=== PATIENT | female | born 1995 | race Caucasian/White ===

== ENCOUNTER 2025-01-29 02:17 | Outpatient (CLI) | payer BC, SELFPAY ==
[2025-01-29 16:37] LABS: Panorama Kit Sent via Fed Ex
[2025-01-29 16:44] LABS: Abs Immature Grans 0.03 10^3/uL (0.0-0.06); Absolute Basophil Count 0.05 10^3/uL (0.0-0.2); Absolute Eosinophil Count 0.13 10^3/uL (0.0-0.7); Absolute Monocyte Count 0.59 10^3/uL (0.1-0.8); Absolute Neutrophil Count 5.55 10^3/uL (1.2-6.7); Basophils % 0.6 %; Eosinophils % 1.5 %; HCT 32.6 % (36.0-46.0); HGB 11.1 g/dL (11.2-15.7); Immature Grans % 0.3 %; Lymphocytes % 26.6 %; MCV 88 fL (80-95); MPV 8.4 fL (8.0-11.0); Monocytes % 6.8 %; Neutrophils % 64.2 %; Platelet Count 301 10^3/uL (130-400); RDW 12.8 % (11.7-14.6); RDW-SD 41.2 fL; WBC 8.65 10^3/uL (4.4-10.8)
[2025-01-31 09:34] LABS: Varicella IgG Antibody Negative (See Note)
[2025-01-31 09:38] LABS: Rubella IgG Ab (UVM) Positive (See Note)
[2025-01-31 09:44] LABS: Hepatitis B Surface Ag Negative (Negative)
[2025-01-31 10:37] LABS: Hepatitis C Ab w Rflx HCV PCR Negative (Negative)
[2025-01-31 11:28] LABS: HIV-1/2 Ag & Ab Screen Negative (Negative)
[2025-02-01 22:01] LABS: Syphilis IgG w/Reflex Nonreactive (Nonreactive)
[2025-02-05 15:44] LABS: Specimen WB Whole Blood
[2025-02-15 01:33] LABS: Result Summary NEGATIVE; Specimen WB Whole Blood
== END 2025-01-29 02:18 | disposition home or self-care (01) ==
LOC: LBO 02:17
PROVIDERS: Visit Provider Advanced Practice Midwife
DX: Z34.91 Encounter for supervision of normal pregnancy, unspecified, first trimester (principal)
CPT/HCPCS: 36415; 81220; 81222; 81329; 86787; 86803; 86850; 86900; 86901; 87340; 87389; 85025; 86762; 86780

== ENCOUNTER 2025-01-29 15:56 | Outpatient (REF) | payer BC, SELFPAY ==
[2025-01-29 17:15] LABS: *AMPHETAMINES SCREEN URINE Negative (Negative); *BARBITURATES SCREEN URINE Negative (Negative); *BENZODIAZEPINES SCREEN URINE Negative (Negative); Cannabinoids THC Negative (Negative); Cocaine Screen,Urine Negative (Negative); METHADONE URINE SCREEN Negative (Negative); OPIATES URINE SCREEN Negative (Negative)
[2025-01-29 17:22] LABS: Tricyclic Antidepressants Negative (Negative)
[2025-01-31 12:11] LABS: Fentanyl Scr w/Rfx Confirm Negative ng/mL (<1)
[2025-02-07 11:21] LABS: Buprenorphine Negative ng/mL (Cutoff: 5.0); Norbuprenorphine Negative ng/mL (Cutoff: 2.5)
== END 2025-01-29 15:57 | disposition home or self-care (01) ==
LOC: LBN 15:56
PROVIDERS: Visit Provider Advanced Practice Midwife
DX: Z34.91 Encounter for supervision of normal pregnancy, unspecified, first trimester (principal)
CPT/HCPCS: 80307; 80348; 87086

== ENCOUNTER 2025-02-15 17:50 | Outpatient (REF) | payer BC, SELFPAY ==
[2025-02-18 12:09] LABS: Chlamydia Result Negative (Negative); GC Result Negative (Negative)
== END 2025-02-15 17:51 | disposition home or self-care (01) ==
LOC: LBN 17:50
PROVIDERS: Visit Provider Advanced Practice Midwife
DX: Z34.92 Encounter for supervision of normal pregnancy, unspecified, second trimester (principal)
CPT/HCPCS: 87491; 87591

== ENCOUNTER 2025-05-07 03:44 | Outpatient (CLI) | payer BC, SELFPAY ==
[2025-05-07 14:31] LABS: HCT 33.0 % (36.0-46.0); HGB 11.3 g/dL (11.2-15.7); MCH 30.6 pg (27.0-33.0); MCHC 34.2 % (32.0-36.0); MCV 89 fL (80-95); MPV 9.0 fL (8.0-11.0); Platelet Count 245 10^3/uL (130-400); RBC 3.69 10^6/uL (3.93-5.22); RDW 13.1 % (11.7-14.6); RDW-SD 43.1 fL; WBC 9.60 10^3/uL (4.4-10.8)
[2025-05-07 14:37] LABS: Glucose,1 Hr (Glucola) 98 mg/dL (80-140)
== END 2025-05-07 03:45 | disposition home or self-care (01) ==
LOC: LBO 03:44
PROVIDERS: Visit Provider Advanced Practice Midwife
DX: Z34.92 Encounter for supervision of normal pregnancy, unspecified, second trimester (principal)
CPT/HCPCS: 36415; 82950; 85027; 86850; 90384

== ENCOUNTER 2025-05-07 15:41 | Outpatient (REF) | payer BC, SELFPAY ==
[2025-05-07 17:27] LABS: Cannabinoids THC Negative (Negative); METHADONE URINE SCREEN Negative (Negative)
[2025-05-09 11:26] LABS: Fentanyl Scr w/Rfx Confirm Negative ng/mL (<1)
== END 2025-05-07 15:42 | disposition home or self-care (01) ==
LOC: LBN 15:41
PROVIDERS: Visit Provider Advanced Practice Midwife
DX: Z34.93 Encounter for supervision of normal pregnancy, unspecified, third trimester (principal)
CPT/HCPCS: 80307; 80348

== ENCOUNTER 2025-06-19 01:20 | Outpatient (CLI) | payer BC, SELFPAY ==
--- NOTE | 2025-06-19 12:35 | DI.US_ITS ---
Exam(s) US OB SIVAN WEIGHT EXAM: US OB SIVAN WEIGHT CLINICAL HISTORY: S>D,UTERINE SIZE DISCREPANCY,[id number]. TECHNIQUE: Transabdominal obstetrical ultrasound performed. COMPARISON: US US OB 2-3 TRIMESTER from 03/13/2025 FINDINGS: Number of fetuses: 1 position: Cephalic. Placental location: There is a grade 3 posterior placenta. The placental tip is 3.5 cm from the internal os. No evidence of previa. Cervical length: The cervical length is 4.1 cm. BIOMETRIC DATA: BPD: 9.12cm, 37weeks HC: 31.75cm, 35weeks 5days AC: 30.79cm, 34weeks 5days FL: 6.77cm, 34weeks 6days EFW: 2,587.95g, 5lb 11.89oz, 56.8% Composite Age: 35weeks 4days NITISH: 07/20/2025 Heart Rate: heart rate was not recorded during the examination. Amniotic fluid index: 17.02cm. The largest pocket measures 6.6 cm. IMPRESSION: 1. Single live intrauterine gestation as above. 2. Estimated weight is 2588gms. This is the 57 percent percentile. 3. Amniotic fluid index is 17.0 cm. The largest pocket measures 6.6 cm. DATA REPOSITORY:
== END 2025-06-19 01:40 ==
PROVIDERS: Visit Provider Advanced Practice Midwife
DX: O26.843 Uterine size-date discrepancy, third trimester (principal); Z3A.37 37 weeks gestation of pregnancy
CPT/HCPCS: 76816

== ENCOUNTER 2025-07-05 15:14 | Outpatient (REF) | payer BC, SELFPAY | END 2025-07-05 15:15 | disposition home or self-care (01) | LOC: LBN 15:14 | PROVIDERS: Visit Provider Advanced Practice Midwife | DX: Z34.93 Encounter for supervision of normal pregnancy, unspecified, third trimester (principal) | CPT/HCPCS: 87081 ==

== ENCOUNTER 2025-07-12 17:15 | Outpatient (REF) | payer BC, SELFPAY ==
[2025-07-12 18:13] LABS: PROTEIN < 6.0 mg/dL
== END 2025-07-12 17:16 | disposition home or self-care (01) ==
LOC: LBN 17:15
PROVIDERS: Visit Provider Advanced Practice Midwife
DX: Z34.93 Encounter for supervision of normal pregnancy, unspecified, third trimester (principal)
CPT/HCPCS: 82565; 84156

== ENCOUNTER 2025-07-15 07:54 | Outpatient (CLI) | payer BC, SELFPAY ==
[2025-07-15 15:43] VITALS: BP 132/84; PULSE 73; TEMP 36.7
[2025-07-15 15:46] VITALS: BP 132/84; PULSE 73; TEMP 36.7
--- NOTE | 2025-07-15 16:30 | W.OBNST ---
Date of service: 07/15/25 Time of Service: 16:30 NST Evaluation Reason for NST Reasons for Nonstress Test: GESTATIONAL HYPERTENSION Gestational Age Gestational Age in Weeks and Days: 38 Weeks and 3Days Test and Monitor Explained Test/Monitor Explained: Test Explained and Monitor Explained Vital Signs Blood Pressure: 132/84 Pulse: 73 Temperature: 98.1 F NST Information Date on Monitor: 07/15/25 Time on Monitor: 15:33 Date off Monitor: 07/15/25 Time off Monitor: 16:06 Total Time on Monitor: 33 NST Interventions: PO Hydration NST Evaluation Patient States Movement: Present FHR Baseline: 130 Variability: Moderate 6-25 bpm Accelerations: 15x15 Decelerations: None NST Results: Reactive Note Ultrasound Done: N/A. NST Note Note: NST due to BP 130s/80s in office. Reactive NST. Will continue to see Fabricio twice weekly. NST Reviewed and Verified by: Jo-Ann Hernández
[2025-07-15 16:33] VITALS: BP 132/84; PULSE 73; TEMP 36.7
== END 2025-07-15 16:06 ==
LOC: BCD 07:54 → OBS 15:39
PROVIDERS: Visit Provider Advanced Practice Midwife
DX: O13.3 Gestational [pregnancy-induced] hypertension without significant proteinuria, third trimester (principal); Z3A.38 38 weeks gestation of pregnancy
CPT/HCPCS: 59025

== ENCOUNTER 2025-07-25 20:27 | Inpatient (IN) | payer BC, SELFPAY ==
[2025-07-25 21:34] VITALS: TEMP 36.8
[2025-07-25 21:39] VITALS: BP 134/81; PULSE 93; RESP 16; TEMP 37
[2025-07-25 21:49] LABS: Abs Immature Grans 0.13 10^3/uL (0.0-0.06); HCT 31.4 % (36.0-46.0); HGB 10.8 g/dL (11.2-15.7); Immature Grans % 1.0 %; MCH 30.8 pg (27.0-33.0); MCHC 34.4 % (32.0-36.0); MCV 90 fL (80-95); MPV 9.4 fL (8.0-11.0); Platelet Count 222 10^3/uL (130-400); RBC 3.51 10^6/uL (3.93-5.22); RDW 13.9 % (11.7-14.6); RDW-SD 45.1 fL; WBC 13.34 10^3/uL (4.4-10.8)
[2025-07-25 21:50] VITALS: BP 134/81; PULSE 93
[2025-07-25 22:07] LABS: ALT 18 U/L (14-59); AST 17 U/L (15-37); Albumin 2.9 g/dL (3.4-5.0); Alkaline Phosphatase 160 U/L (46-116); Anion Gap 11.6 mmol/L (3-11); BUN 9 mg/dL (7-18); Bilirubin, Total 0.2 mg/dL (0.2-1.0); CO2 22.4 mmol/L (21.0-32.0); Calcium 8.9 mg/dL (8.5-10.1); Chloride 103 mmol/L (98-107); Estimated GFR 123.76 (mL/min/1.73m2); Glucose 95 mg/dL (74-106); Potassium 3.8 mmol/L (3.5-5.1); Sodium 137 mmol/L (136-145); Total Protein 7.1 g/dL (6.4-8.2)
--- NOTE | 2025-07-25 22:28 | W.PM.OBHPL1 ---
Date of service: 07/25/25 Time of Service: 22:28 Assessment and Plan Assessment and plan (1) Spontaneous onset of labor: Status: Acute Assessment and plan: Admit to Center and routine admission labs. Comfort measures. Anticipate . OB-HPI Labor/Delivery History of Present Illness Reason for Visit: labor Chief Complaint: Uterine Contractions; Suspected Rupture of Membranes , Associated Signs and Symptoms of Suspected ROM: ruptured membranes. NITISH Calculator Estimated Delivery Date Method Current WG Current Estimate 07/26/25 Ultrasound #1 39w 6d Other Estimates 07/29/25 LMP (Uncertain) 39w 3d 07/30/25 Ultrasound #2 39w 2d Comments: Fabricio called and reported ruptured membranes and regular contractions. She presented with regular contractions and leaking clear fluid which was nitrazine pos. History of Present Expected Delivery Route/Plan - CNM FOB/partner - Ryan Schulz (first child) BB yes to circ Wants a low to no intervention labor and GBS negative Specific Issues/Plan 1.5 P's +, patients parents both alcoholics and mother with NIEVES, strong boundaries with them and limited contact 1a. UDS -neg, 28wk UDS-neg 2. RH neg - Discussed with Nimisha Regalado at 28 weeks- 05/07 3. SMA & CF negative, cfDNA low risk male, AFP declined 4. Hgb 11.0- iron every other day recommended 5. Varicella non-immune, Discussed with Fabricio, offer vaccine 6. At 20 wks anatomy scan is nml, placental edge 2.7 cm from os, EFW 90th percentile 7. leg and foot cramps - magnesium recommended 8. Anxiety - uses relaxation techniques. PFSH All Active Problems (Updated 07/25/25 @ 22:35 by Jo-Ann Hernández CNM) Spontaneous onset of labor (Acute) Susceptible to varicella (non-immune), currently (Acute) Rh negative state in antepartum period (Acute) (Acute) Medical History (Updated 07/25/25 @ 22:35 by Jo-Ann Hernández CNM) Anxiety Family history of hypertension in father Family History (Updated 01/29/25 @ 15:02 by Marii Bejarano CNM) Father Family history of hypertension in father Hypertension Substance use disorder Alcohol use disorder Aunt Hyperlipidemia Maternal Grandmother Hyperlipidemia Diabetes Mother Bipolar disorder Substance use disorder Alcohol use disorder Paternal Grandmother Heart disease Uncle Cancer Social History (Updated 01/29/25 @ 15:09 by Marii Bejarano CNM) Smoking/Tobacco Use Status: Former Tobacco Use Second Hand Exposure: No Smoking risk assessment performed?: Yes Alcohol Intake: current Drug use: Never Substance use type: does not use Household members: significant other Housing: house 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 Pets and animals: Yes (3 dogs and chickens) Pets and animals: cat(s), dog(s) and farm animals Sexually active: Yes Do you think of yourself as: straight/heterosexual Current gender identity: female What is your relationship status?: living with partner Panel score (0-1 are the most socially isolated patients): 1 What type of physical activity do you participate in: walking, regular exercise, other Details: pilates and yoga Duration: 30-45 minutes/day Frequency: 3-4 times per week Seatbelt use: always Helmet use: Yes Do you feel safe at home: Yes Do you feel safe in your relationship?: Yes Female Reproductive History Menstrual Age of Menarche: 12 Duration of menses: 3-5 days History History 1 Para 0 Hx # Term Pregnancies 0 Multiple births 0 Hx # Pregnancies 0 Ectopic pregnancies 0 AB induced 0 Hx Number of Living Children 0 AB spontaneous 0 Meds Allergies and Home Medications Allergies Allergy/AdvReac Type Severity Reaction Status Date / Time pollen extracts Allergy Unknown Unknown Verified 07/19/25 13:45 Penicillins AdvReac Unknown Other (See Verified 07/19/25 13:45 Comment) Home Medications ?Medication ?Instructions ?Recorded ?Confirmed ?Type ascorbic acid 125 mg-collagen, cap PO 01/29/25 07/19/25 History hydrolyzed 740 mg capsule (Collagen Plus Vitamin C) calcium 650 mg-vitamin D3 12.5 tab PO 01/29/25 07/19/25 History mcg-vitamin K 40 mcg chewable tablet (Viactiv) omega-3 360 kj-jmt-crd-fish oil 1 cap PO DAILY 01/29/25 07/19/25 History 1,200 mg capsule,delayed release (Fish Oil) Bacillus coagulans 250 million 250 mmu cells PO ONCE 02/15/25 07/19/25 History cell chewable tablet ferrous sulfate 325 mg (65 mg 325 mg PO DAILY 02/15/25 07/19/25 History iron) tablet,delayed release vitamins no.165-iron 13 tab PO 02/15/25 07/19/25 History mg-folic acid 1 mg chewable tablet Exam Physical Exam Vital signs: Temp Pulse Resp BP 98.6 F 93 H 16 134/81 07/25/25 21:39 07/25/25 21:50 07/25/25 21:39 07/25/25 21:50 Vital Signs Reviewed: Yes Constitutional Constitutional: no acute distress Detailed Labor and Delivery Exam Dilation: 3 Effacement (%): 100 station: 0 Cervix position: mid Consistency: soft Pinto Score: Cervical Points Exam 0 1 2 3 Dilation Closed 1-2cm 3-4 cm 5-6cm Effacement 0-30% 40-50% 60-70% 80% Consistency Firm Medium Soft Station -3 -2 -1,0 +1,+2 Position Posterior Mid Anterior Amniotic Membrane Status: Ruptured Amniotic Fluid: Clear Pooling: Positive Nitrazine: Positive Monitor Mode: External Contraction Frequency(min): every 2-3 Contraction Duration(sec): 50-60 Contraction Intensity: Moderate/Strong Fetus A Heart Rate Baseline: 130 Monitor Accelerations: 15 X 15 Monitor Decelerations: None Variability: Moderate (6-25 BPM) Categories: Category I Date of Membrane Rupture: 07/25/25 Time of Membrane Rupture: 20:00 HEENT Exam HEENT Exam: Normal Respiratory Exam Respiratory Exam: Normal Cardiovascular Exam Cardiovascular Exam: Normal Abdominal Exam Abdominal Exam: Normal Exam Exam: Normal Extremities Exam Extremities Exam: Normal Skin Exam Skin Exam: Normal Psychiatric Exam Psychiatric Exam: Normal Results Abnormal Lab Findings: Abnormal Labs 07/25/25 21:40 WBC 13.34 H RBC 3.51 L Hgb 10.8 L Hct 31.4 L Absolute Neutrophils 9.68 H Absolute Monocytes 1.03 H Anion Gap 11.6 H Alkaline Phosphatase 160 H Albumin 2.9 L Risk Assessment Risk for Shoulder Dystocia Historical/Initial OB: NEGATIVE FOR: Pelvic Abnormality, Pre- BMI>30, Previous Shoulder Dystocia or Previous Macrosomia 36 Weeks: NEGATIVE FOR: Current Gestational DM, EFW>4500gms or Maternal Weight Gain>40lbs 40 Weeks: NEGATIVE FOR: EFW> 4500 gms, Maternal Weight Gain >40lb or Post Dates Increased Risk?: No Risk for Pre-Eclampsia Yes, if one or more: NEGATIVE FOR: Hx Pre-E/Gest HTN, Chronic HTN, Multiple Gestation, Pre-gestational DM, Renal Disease, Systemic Lupus or APA Syndrome Yes, if 2 or more: POSITIVE FOR: Nulliparity; NEGATIVE FOR: Age>= 35 yrs, >10yr btwn pregnancies, BMI>30, ethinicty, Mother/Sister w/ Pre-E or Previous IUGR Risk for Post- Hemorrhage Initial: NEGATIVE FOR: Multiple Gestation, Previous PPH, Known Clotting Deficiency, Grand Multiparity or Anticoagulation 36 Weeks: NEGATIVE FOR: Anemia, hgb<10, Low platelets(thrombocytopenia), Gestational HTN or Pre-E, Polyhydraminios or EFW>4500gms 40 Weeks: NEGATIVE FOR: Anemia, hgb<10, Low platelets (thrombocytopenia), Gestation HTN or Pre-E, Polyhydraminios or EFW>4500gms At Risk?: No Risks Reviewed Risks Reviewed Upon Admission: Yes
[2025-07-25 22:45] VITALS: TEMP 36.8
[2025-07-25 23:50] VITALS: RESP 18; TEMP 36.6
[2025-07-25 23:53] VITALS: BP 131/86; PULSE 81
[2025-07-26] VITALS (19 sets, daily range): BP systolic 126–137; BP diastolic 71–87; PULSE 88–108; RESP 16–18; TEMP 36.3–37.1
--- NOTE | 2025-07-26 05:41 | W.PM.OBNL1 ---
Date of service: 07/26/25 Time of Service: 05:41 Pelvic Exam Comments: exam deferred Contractions Contraction Frequency(min): every 3-4 Contraction Duration(sec): 60 Intensity: Moderate Fetus A Monitor: Doppler Heart Rate Baseline: 135 Decelerations: None Assessment and Plan Assessment and plan (1) Spontaneous onset of labor: Status: Acute Assessment and plan: Will provide comfort measures and anticipate . Labor augmentation if indicated. Objective Abnormal lab results 07/25/25 Range/Units 21:40 WBC 13.34 H (4.4-10.8) 10^3/uL RBC 3.51 L (3.93-5.22) 10^6/uL Hgb 10.8 L (11.2-15.7) g/dL Hct 31.4 L (36.0-46.0) % Absolute Neutrophils 9.68 H (1.2-6.7) 10^3/uL Absolute Monocytes 1.03 H (0.1-0.8) 10^3/uL Anion Gap 11.6 H (3-11) mmol/L Alkaline Phosphatase 160 H (46-116) U/L Albumin 2.9 L (3.4-5.0) g/dL Temp Pulse Resp BP 98.5 F 105 H 16 137/82 07/26/25 03:55 07/26/25 03:55 07/26/25 02:50 07/26/25 03:55 Laboratory Results WBC 13.34 10^3/uL (4.4-10.8) H 07/25/25 21:40 RBC 3.51 10^6/uL (3.93-5.22) L 07/25/25 21:40 Hgb 10.8 g/dL (11.2-15.7) L 07/25/25 21:40 Hct 31.4 % (36.0-46.0) L 07/25/25 21:40 MCV 90 fL (80-95) 07/25/25 21:40 MCH 30.8 pg (27.0-33.0) 07/25/25 21:40 MCHC 34.4 % (32.0-36.0) 07/25/25 21:40 RDW 13.9 % (11.7-14.6) 07/25/25 21:40 Plt Count 222 10^3/uL (130-400) 07/25/25 21:40 MPV 9.4 fL (8.0-11.0) 07/25/25 21:40 Immature Gran % 1.0 % 07/25/25 21:40 Neutrophils % 72.6 % 07/25/25 21:40 Lymphocytes % 17.3 % 07/25/25 21:40 Monocytes % 7.7 % 07/25/25 21:40 Eosinophils % 1.0 % 07/25/25 21:40 Basophils % 0.4 % 07/25/25 21:40 Nucleated RBC % 0.0 % (0.0-0.3) 07/25/25 21:40 Absolute Neutrophils 9.68 10^3/uL (1.2-6.7) H 07/25/25 21:40 Absolute Lymphocytes 2.31 10^3/uL (1.2-3.4) 07/25/25 21:40 Absolute Monocytes 1.03 10^3/uL (0.1-0.8) H 07/25/25 21:40 Absolute Eosinophils 0.13 10^3/uL (0.0-0.7) 07/25/25 21:40 Absolute Basophils 0.05 10^3/uL (0.0-0.2) 07/25/25 21:40 Sodium 137 mmol/L (136-145) 07/25/25 21:40 Potassium 3.8 mmol/L (3.5-5.1) 07/25/25 21:40 Chloride 103 mmol/L (98-107) 07/25/25 21:40 Carbon Dioxide 22.4 mmol/L (21.0-32.0) 07/25/25 21:40 Anion Gap 11.6 mmol/L (3-11) H 07/25/25 21:40 BUN 9 mg/dL (7-18) 07/25/25 21:40 Creatinine 0.6 mg/dL (0.55-1.02) 07/25/25 21:40 Est GFR (CKD-EPI 2020) 123.76 (mL/min/1.73m2) 07/25/25 21:40 Glucose 95 mg/dL (74-106) 07/25/25 21:40 Calcium 8.9 mg/dL (8.5-10.1) 07/25/25 21:40 Total Bilirubin 0.2 mg/dL (0.2-1.0) 07/25/25 21:40 AST 17 U/L (15-37) 07/25/25 21:40 ALT 18 U/L (14-59) 07/25/25 21:40 Alkaline Phosphatase 160 U/L (46-116) H 07/25/25 21:40 Total Protein 7.1 g/dL (6.4-8.2) 07/25/25 21:40 Albumin 2.9 g/dL (3.4-5.0) L 07/25/25 21:40 Membranes Rupture Positive 07/25/25 22:15 ABO/Rh O Negative 07/25/25 21:40 Antibody Screen POSITIVE 07/25/25 21:40 Antibody Identification Anti-D 07/25/25 21:40 Vital Signs Reviewed: Yes Notable Details: preeclampsia labs WNL. Subjective Patient Reports: No new Complaints Interval history since last seen: Fabricio has been using the ball and ambulating for comfort. She was able to rest briefly and is coping well with contractions Results Hemoglobin/Hematocrit: Hgb 10.8 g/dL (11.2-15.7) L 07/25/25 21:40 Hct 31.4 % (36.0-46.0) L 07/25/25 21:40 Abnormal Lab Findings: Abnormal Labs 07/25/25 21:40 WBC 13.34 H RBC 3.51 L Hgb 10.8 L Hct 31.4 L Absolute Neutrophils 9.68 H Absolute Monocytes 1.03 H Anion Gap 11.6 H Alkaline Phosphatase 160 H Albumin 2.9 L
--- NOTE | 2025-07-26 13:00 | W.PM.OBNL1 ---
Date of service: 07/26/25 Time of Service: 13:00 Informed Consent Informed Consent: Augmentation of Labor (pr declines augmentation and declines antibiotics at this time) and Risk,Benefits,Alternatives Discussed Pelvic Exam Dilation: 7 Effacement (%): 100 station: 0 Cervix Position: mid Consistency: soft Contractions Monitor Mode: External Contraction Frequency(min): irregular, q4-8 Intensity: Mild/Moderate Fetus A Monitor: External (US) Heart Rate Baseline: 130 Variability: Moderate (6-25 BPM) Categories: Category I Accelerations: Present Decelerations: None Amniotic Membrane Status: Ruptured Rupture Method: Spontaneous Amniotic Fluid: Clear Date of Membrane Rupture: 08/15/25 Time of Membrane Rupture: 20:00 Assessment and Plan Assessment and plan (1) PROM (premature rupture of membranes): Status: Acute Assessment and plan: A: 30 yo G1 @ 40 wks, PROM last night @ 2000 Onset of contractions during the night, 6cm @ 0700 today now advanced to 7cm @ 1300 Inadequate contraction pattern, recommendation made for pitocin augmentation Began discussion of prophylactic PCN due to PROM >18 hrs, is GBS neg P: Will obtain EFM tracing to verify category 1 and return to intermittent auscultation Revisit options in care plan with pt and progress evaluation by 1700 Repeat CBC at 1999 Dr. Rosario aware of pt status Objective Abnormal lab results 07/25/25 Range/Units 21:40 WBC 13.34 H (4.4-10.8) 10^3/uL RBC 3.51 L (3.93-5.22) 10^6/uL Hgb 10.8 L (11.2-15.7) g/dL Hct 31.4 L (36.0-46.0) % Absolute Neutrophils 9.68 H (1.2-6.7) 10^3/uL Absolute Monocytes 1.03 H (0.1-0.8) 10^3/uL Anion Gap 11.6 H (3-11) mmol/L Alkaline Phosphatase 160 H (46-116) U/L Albumin 2.9 L (3.4-5.0) g/dL Temp Pulse Resp BP 98.4 F 89 16 136/83 07/26/25 12:03 07/26/25 13:50 07/26/25 02:50 07/26/25 13:50 Laboratory Results WBC 13.34 10^3/uL (4.4-10.8) H 07/25/25 21:40 RBC 3.51 10^6/uL (3.93-5.22) L 07/25/25 21:40 Hgb 10.8 g/dL (11.2-15.7) L 07/25/25 21:40 Hct 31.4 % (36.0-46.0) L 07/25/25 21:40 MCV 90 fL (80-95) 07/25/25 21:40 MCH 30.8 pg (27.0-33.0) 07/25/25 21:40 MCHC 34.4 % (32.0-36.0) 07/25/25 21:40 RDW 13.9 % (11.7-14.6) 07/25/25 21:40 Plt Count 222 10^3/uL (130-400) 07/25/25 21:40 MPV 9.4 fL (8.0-11.0) 07/25/25 21:40 Immature Gran % 1.0 % 07/25/25 21:40 Neutrophils % 72.6 % 07/25/25 21:40 Lymphocytes % 17.3 % 07/25/25: Monocytes % 7.7 % 07/25/25: Eosinophils % 1.0 % 07/25/25: Basophils % 0.4 % 07/25/25: Nucleated RBC % 0.0 % (0.0-0.3) 07/25/25 21:40 Absolute Neutrophils 9.68 10^3/uL (1.2-6.7) H 07/25/25 21:40 Absolute Lymphocytes 2.31 10^3/uL (1.2-3.4) 07/25/25 21:40 Absolute Monocytes 1.03 10^3/uL (0.1-0.8) H 07/25/25: Absolute Eosinophils 0.13 10^3/uL (0.0-0.7) 07/25/25 21:40 Absolute Basophils 0.05 10^3/uL (0.0-0.2) 07/25/25 21:40 Sodium 137 mmol/L (136-145) 07/25/25 21:40 Potassium 3.8 mmol/L (3.5-5.1) 07/25/25 21:40 Chloride 103 mmol/L (98-107) 07/25/25 21:40 Carbon Dioxide 22.4 mmol/L (21.0-32.0) 07/25/25 21:40 Anion Gap 11.6 mmol/L (3-11) H 07/25/25 21:40 BUN 9 mg/dL (7-18) 07/25/25 21:40 Creatinine 0.6 mg/dL (0.55-1.02) 07/25/25 21:40 Est GFR (CKD-EPI 2020) 123.76 (mL/min/1.73m2) 07/25/25 21:40 Glucose 95 mg/dL (74-106) 07/25/25 21:40 Calcium 8.9 mg/dL (8.5-10.1) 07/25/25 21:40 Total Bilirubin 0.2 mg/dL (0.2-1.0) 07/25/25 21:40 AST 17 U/L (15-37) 07/25/25 21:40 ALT 18 U/L (14-59) 07/25/25 21:40 Alkaline Phosphatase 160 U/L (46-116) H 07/25/25 21:40 Total Protein 7.1 g/dL (6.4-8.2) 07/25/25 21:40 Albumin 2.9 g/dL (3.4-5.0) L 07/25/25 21:40 Membranes Rupture Positive 07/25/25 22:15 ABO/Rh O Negative 07/25/25 21:40 Antibody Screen POSITIVE 07/25/25 21:40 Antibody Identification Anti-D 07/25/25 21:40 Vital Signs Reviewed: Yes Objective Narrative Objective Narrative: Pt coping well with contractions which are mild/moderate and irregular/infrequent Afebrile, normotensive, tolerating oral intake well PROM x18 hrs, discuss pitocin augmentation and antibiotic prophylaxis with pt Pt and FOB are declining interventions at this time, preferring rest and positions changes for the afternoon We discussed risk of chorioamnionitis in prolonged ROM and that her labor progress is very slow We also discussed risk of maternal fatigue as labor extends into a second night of no sleep Subjective Interval history since last seen: Contractions are a bit less frequent, some are very strong especially when changing positions. No nausea or vomiting, oral intake and voiding qs. Pt appears calm and conversational, using physioball and p-nut ball, or standing at bedside
[2025-07-26 17:48] LABS: Abs Immature Grans 0.12 10^3/uL (0.0-0.06); HCT 31.4 % (36.0-46.0); HGB 10.7 g/dL (11.2-15.7); Immature Grans % 0.9 %; MCH 30.4 pg (27.0-33.0); MCHC 34.1 % (32.0-36.0); MCV 89 fL (80-95); MPV 9.3 fL (8.0-11.0); Platelet Count 217 10^3/uL (130-400); RBC 3.52 10^6/uL (3.93-5.22); RDW 14.1 % (11.7-14.6); RDW-SD 45.5 fL; WBC 13.86 10^3/uL (4.4-10.8)
--- NOTE | 2025-07-26 20:26 | W.PM.OBNL1 ---
Date of service: 07/26/25 Time of Service: 20:27 Informed Consent Informed Consent: Augmentation of Labor (pr declines augmentation and declines antibiotics at this time) and Risk,Benefits,Alternatives Discussed Pelvic Exam Dilation: 7.5 Effacement (%): 100 station: +1 Position: LOP Consistency: soft Contractions Monitor Mode: Palpation Contraction Frequency(min): irregular Intensity: Moderate Fetus A Monitor: Doppler Heart Rate Baseline: 140 Categories: Category I FHR Rhythm: Regular Characteristics: Normal Assessment and Plan Assessment and plan (1) PROM (premature rupture of membranes): Status: Acute Assessment and plan: A: Slow progression to 7-8cm, vtx 0/+1 over past 7 hours Pitocin augmentation is indicated, prophylactic antibiotics are recommended for PROM x24 hrs Pt in consultation with FOB continues to decline these therapies hoping she will progress without them Reviewed all risks including infection, continued slow to no progress, hemorrhage, distress Repeat WBC is stable at 13.86, pt remains afebrile and FHT baseline 130-140 P: Pt does consent to placing and securing IV access She desires recheck for progress in a few hours Will revisit recommendations with pt and FOB at that time Objective Vital Signs Reviewed: Yes Objective Narrative Objective Narrative: Labor remains irregular, pt moving about room, using different positions, coping well. Discussions regarding use of pitocin for augmentation and antibiotics to prevent infection after 24 hrs SROM have continued, many questions answered, recommendations made clear and pt declines either pitocin or PCN, has concerns about being allergic to PCN though she has never had PCN but others in her family have PCN allergy. We also have discussed increased risk for PPH due to very slow progress from inadequate contraction pattern possibly heralding uterine atony . Pt does agree to IV access placement. Subjective Interval history since last seen: Contractions have sometimes been stronger, other times less so, remain irregular and short. Results Abnormal Lab Findings: Abnormal Labs 07/25/25 07/26/25 21:40 17:40 WBC 13.34 H 13.86 H RBC 3.51 L 3.52 L Hgb 10.8 L 10.7 L Hct 31.4 L 31.4 L Absolute Neutrophils 9.68 H 10.37 H Absolute Monocytes 1.03 H 1.14 H Anion Gap 11.6 H Alkaline Phosphatase 160 H Albumin 2.9 L
--- NOTE | 2025-07-26 22:47 | W.PM.OBNL1 ---
Date of service: 07/26/25 Time of Service: 22:47 Informed Consent Informed Consent: Augmentation of Labor (pr declines augmentation and declines antibiotics at this time) and Risk,Benefits,Alternatives Discussed Pelvic Exam Comments: deferred Contractions Monitor Mode: External Contraction Frequency(min): q2-4 Intensity: Moderate/Strong Fetus A Monitor: External (US) Heart Rate Baseline: 130 Variability: Moderate (6-25 BPM) Categories: Category I Accelerations: Present Decelerations: None Amniotic Membrane Status: Ruptured Assessment and Plan Assessment and plan (1) PROM (premature rupture of membranes): Status: Acute Assessment and plan: A: Advanced dilation without progress for some hours Category 1 tracing, afebrile, normotensive Inadequate contraction pattern, pt declines IV pitocin augmentation Nipple stimulation is more acceptable to pt ROM x27 hrs, pt declines prophylactic ATB after extensive counseling P: Cont intermittent auscultation & pt initiated nipple stimulation IV access has been placed and secured Dr. Rosario notified of pt status Anticipate once labor pattern increases Objective Vital Signs Reviewed: Yes Subjective Interval history since last seen: Pt consents to 30 minute EFM tracing to confirm category 1 status. She reports recent increase in contraction strength and frequency while sitting on physioball and doing manual nipple stimulation, also reports back pain with contractions.
[2025-07-26] MEDS: Acetaminophen 325 MG TAB 650 MG PO (23:41)
[2025-07-27] VITALS (214 sets, daily range): BP systolic 113–148; BP diastolic 57–87; PULSE 0–196; RESP 16–18; TEMP 36.5–37.2; O2SAT 97; BMI 32.8
--- NOTE | 2025-07-27 02:58 | W.PM.OBNL1 ---
Date of service: 07/27/25 Time of Service: 02:59 Informed Consent Informed Consent: Augmentation of Labor (pt requesting augmentation of labor), Risk,Benefits,Alternatives Discussed and Other (declines ATB prophylaxis) Pelvic Exam Dilation: 8.5 (RN exam at 0030) Contractions Monitor Mode: External (NOVI) Contraction Frequency(min): q2-3 Intensity: Moderate/Strong Fetus A Monitor: External (US) (NOVI) Heart Rate Baseline: 125 Variability: Moderate (6-25 BPM) Categories: Category I Accelerations: Present Decelerations: None Amniotic Membrane Status: Ruptured Assessment and Plan Assessment and plan (1) Prolonged rupture of membranes: Status: Acute Assessment and plan: Pt declines antibiotic prophylaxis at 31 hrs ROM Remains afebrile, GBS neg @ 36 wks, FHT tracing category 1 (2) PROM (premature rupture of membranes): Status: Acute Assessment and plan: A: Pt requested SVE @ 0030, RN exam for 8-9 cm dilation Dysfunctional labor, inadequate contraction pattern Pt does not report urges to push or bear down, does report pelvic pressure She is requesting pitocin augmentation, NOVI monitor placed IV site remains secure, pt continues to decline recommended ATB prophylaxis P: Start pitocin augmentation, titrate per protocol, vaginal exam deferred at this time Increased risk for PPH identified, addressed once 2nd stage begins Anticipate Objective Vital Signs Reviewed: Yes Subjective Interval history since last seen: Pt has been moving around the room changing positions often, breathing heavily with contractions, coping well.
[2025-07-27] MEDS: Oxytocin/Normal Saline 30 UNIT/500 ML BAG 2 UNITS IV (03:22)
[2025-07-27] MEDS: Lactated Ringers 1,000 ML 125 ML IV ×2 (03:23→12:00)
[2025-07-27] MEDS: Normal Saline Flush 10 ML SYR IVP (03:24)
--- NOTE | 2025-07-27 05:37 | W.PM.OBNL1 ---
Date of service: 07/27/25 Time of Service: 05:37 Informed Consent Informed Consent: Augmentation of Labor (pt requesting augmentation of labor), Risk,Benefits,Alternatives Discussed and Other (declines ATB prophylaxis) Pelvic Exam Dilation: 9 Effacement (%): 100 station: +2 Comments: membranes palpated across vtx Contractions Monitor Mode: External (NOVI) Contraction Frequency(min): Q2-4 Contraction Duration(sec): 60 Intensity: Moderate/Strong Fetus A Monitor: External (US) (novi) Heart Rate Baseline: 130 Variability: Moderate (6-25 BPM) Categories: Category I Accelerations: Present Decelerations: Early Assessment and Plan Assessment and plan (1) Prolonged rupture of membranes: Status: Acute Assessment and plan: Afebrile, cat 1 tracing, continues to decline ATB (2) PROM (premature rupture of membranes): Status: Acute Assessment and plan: A: Slow progression to 9/+2; category 1 tracing Pitocin at 6u/min, pt advised to limit oral intake to clear liquids Continues to cope well with contractions, FOB bedside for support P: Continue plan of care (pitocin aug, EFM, activity ad rodolfo) Comfort measures as pt requests Continued attention to sx of infection and response to augmentation Reviewed with pt possible use of IUPC to better monitor contraction strength Objective Vital Signs Reviewed: Yes Subjective Interval history since last seen: Pt breathing through contractions and holding labor comb, considering nitrous but feels glad to be working with strong contractions, declines need for further pain management choices, declines ATB prophylaxis again. Reports feeling vaginal pressure and back pain with contractions.
--- NOTE | 2025-07-27 07:59 | PGE_ITS ---
Date of service: 07/27/25 Time of Service: 07:59 Informed Consent Informed Consent: Augmentation of Labor, Risk,Benefits,Alternatives Discussed and Other (declines ATB prophylaxis) Pelvic Exam Dilation: 10 (very thin anterior lip) Effacement (%): 100 station: +3 Comments: small forebag AROM'ed with pt consent, small amt clear fluid returned Contractions Monitor Mode: External (NOVI) Contraction Frequency(min): q2 Contraction Duration(sec): 70 Intensity: Strong Fetus A Monitor: External (US) (NOVI) Heart Rate Baseline: 125 Variability: Moderate (6-25 BPM) Categories: Category I Accelerations: Present Decelerations: Early Assessment and Plan Assessment and plan (1) Prolonged rupture of membranes: Status: Acute (2) PROM (premature rupture of membranes): Status: Acute Assessment and plan: A: 2nd stage huddle completed, category 1 tracing, pitocin @ 12 u/min small amt bloody show noted, vtx +2/+3, thin anterior lip Pt states she doesn't want to push on her back, requests something for pain Offered nitrous and explained other medications will likely dull her ability to push P: Try nitrous for pain management, 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 Rosario notified of pt status and requested inhouse for delivery Objective Vital Signs Reviewed: Yes Objective Narrative Objective Narrative: Pt vocalizing with contractions, prefers kneeling on bed Subjective Interval history since last seen: Reports lots of pelvic pressure including rectal pressure, no involuntary urge to push but requests pain medication. Offered nitrous as 2nd stage is beginning.
--- NOTE | 2025-07-27 10:32 | W.PM.OBNL1 ---
Date of service: 07/27/25 Time of Service: 10:32 Informed Consent Informed Consent: Augmentation of Labor, Regional Anesthesia, Risk,Benefits,Alternatives Discussed and Other (declines ATB prophylaxis) Pelvic Exam Dilation: 10 station: +3 Position: ROP Contractions Contraction Frequency(min): Q2-3 Fetus A Heart Rate Baseline: 130 Variability: Moderate (6-25 BPM) Categories: Category I Accelerations: Present Decelerations: Early Amniotic Membrane Status: Ruptured Assessment and Plan Assessment and plan (1) Prolonged rupture of membranes: Status: Acute (2) PROM (premature rupture of membranes): Status: Acute Assessment and plan: A: Has been pushing for 2 hrs, 3rd second stage huddle completed, maternal fatigue is increasing Anterior fontenelle palpable at 2 o'clock, head movement with maternal effort Category 1 tracing, afebrile, pitocin at 12 u/min P: Dr. Rosario in to speak with pt, recommending intrathecal anesthesia for a rest and to assist rotation Will have SYSTEMS ARCHITECT come to speak with pt and FOB regarding intrathecal process I anticipate if head rotates to [place]-OA Subjective Interval history since last seen: Feeling tired, also feeling discouraged and not sure pushing is working, understands head position is ROP and holding progress up. Agreeable to speaking with Dr. Rosario about options.
--- NOTE | 2025-07-27 10:36 | W.PM.OBNL1 ---
Date of service: 07/27/25 Time of Service: 10:36 Informed Consent Informed Consent: Augmentation of Labor, Risk,Benefits,Alternatives Discussed and Other (declines ATB prophylaxis) Fetus A Heart Rate Baseline: 130 Variability: Moderate (6-25 BPM) Categories: Category I Accelerations: 15 X 15 Decelerations: None Assessment and Plan Assessment and plan (1) Prolonged rupture of membranes: Status: Acute Assessment and plan: Pt is aware of the risk of infection with prolonged rupture of membranse. She continues to decline abx ppx. She also remains afebrile and heart tracing is Cat 1 with no e/o distress. (2) Prolonged labor: Status: Acute Assessment and plan: I had a discussion with the patient, her and the CNM. We reviewed her labor dystocia and potential outcomes. Right now maternal and status are reassuring but that can change quickly. We reviewed options for pain management at this point include Nitrous, which is only minimally helpful to her, or neuraxial anesthesia via intrathecal vs epidural. We discussed the possibility of CS and the increasing risks associated with longer pushing. She opts to talk with anesthesia about a possible intrathecal. Objective Abnormal lab results 07/26/25 Range/Units 17:40 WBC 13.86 H (4.4-10.8) 10^3/uL RBC 3.52 L (3.93-5.22) 10^6/uL Hgb 10.7 L (11.2-15.7) g/dL Hct 31.4 L (36.0-46.0) % Absolute Neutrophils 10.37 H (1.2-6.7) 10^3/uL Absolute Monocytes 1.14 H (0.1-0.8) 10^3/uL Temp Pulse Resp BP 97.7 F 103 H 18 133/82 07/27/25 09:24 07/27/25 10:34 07/27/25 05:17 07/27/25 08:12 Laboratory Results WBC 13.86 10^3/uL (4.4-10.8) H 07/26/25 17:40 RBC 3.52 10^6/uL (3.93-5.22) L 07/26/25 17:40 Hgb 10.7 g/dL (11.2-15.7) L 07/26/25 17:40 Hct 31.4 % (36.0-46.0) L 07/26/25 17:40 MCV 89 fL (80-95) 07/26/25 17:40 MCH 30.4 pg (27.0-33.0) 07/26/25 17:40 MCHC 34.1 % (32.0-36.0) 07/26/25 17:40 RDW 14.1 % (11.7-14.6) 07/26/25 17:40 Plt Count 217 10^3/uL (130-400) 07/26/25 17:40 MPV 9.3 fL (8.0-11.0) 07/26/25 17:40 Immature Gran % 0.9 % 07/26/25 17:40 Neutrophils % 74.8 % 07/26/25 17:40 Lymphocytes % 15.3 % 07/26/25 17:40 Monocytes % 8.2 % 07/26/25 17:40 Eosinophils % 0.4 % 07/26/25 17:40 Basophils % 0.4 % 07/26/25 17:40 Nucleated RBC % 0.0 % (0.0-0.3) 07/26/25 17:40 Absolute Neutrophils 10.37 10^3/uL (1.2-6.7) H 07/26/25 17:40 Absolute Lymphocytes 2.12 10^3/uL (1.2-3.4) 07/26/25 17:40 Absolute Monocytes 1.14 10^3/uL (0.1-0.8) H 07/26/25 17:40 Absolute Eosinophils 0.06 10^3/uL (0.0-0.7) 07/26/25 17:40 Absolute Basophils 0.06 10^3/uL (0.0-0.2) 07/26/25 17:40 Sodium 137 mmol/L (136-145) 07/25/25 21:40 Potassium 3.8 mmol/L (3.5-5.1) 07/25/25 21:40 Chloride 103 mmol/L (98-107) 07/25/25 21:40 Carbon Dioxide 22.4 mmol/L (21.0-32.0) 07/25/25 21:40 Anion Gap 11.6 mmol/L (3-11) H 07/25/25 21:40 BUN 9 mg/dL (7-18) 07/25/25 21:40 Creatinine 0.6 mg/dL (0.55-1.02) 07/25/25 21:40 Est GFR (CKD-EPI 2020) 123.76 (mL/min/1.73m2) 07/25/25 21:40 Glucose 95 mg/dL (74-106) 07/25/25 21:40 Calcium 8.9 mg/dL (8.5-10.1) 07/25/25 21:40 Total Bilirubin 0.2 mg/dL (0.2-1.0) 07/25/25 21:40 AST 17 U/L (15-37) 07/25/25 21:40 ALT 18 U/L (14-59) 07/25/25 21:40 Alkaline Phosphatase 160 U/L (46-116) H 07/25/25 21:40 Total Protein 7.1 g/dL (6.4-8.2) 07/25/25 21:40 Albumin 2.9 g/dL (3.4-5.0) L 07/25/25 21:40 Membranes Rupture Positive 07/25/25 22:15 ABO/Rh O Negative 07/25/25 21:40 Antibody Screen POSITIVE 07/25/25 21:40 Antibody Identification Anti-D 07/25/25 21:40 Vital Signs Reviewed: Yes Subjective Interval history since last seen: I was asked to speak with Fabricio and her in regards to her slow labor progress and persistent OP presentation. She underwent SROM at 20:00 on 07/25, was 3cm at 23:00 and progressed to 7cm around 13:00 on 07/26. She slowly progressed to 8-9cm/0 station by midnight and agreed to augmentation with pitocin at 3:30am. By 5am she was 9/+2. By 7:30 she had a thin AL and a small forebag was ruptured. She eventually started pushing around 8am and pushed for ~2hrs with ensuing discouragement, fatigue and lower pain tolerance. Results Hemoglobin/Hematocrit: Hgb 10.7 g/dL (11.2-15.7) L 07/26/25 17:40 Hct 31.4 % (36.0-46.0) L 07/26/25 17:40 Abnormal Lab Findings: Abnormal Labs 07/25/25 07/26/25 21:40 17:40 WBC 13.34 H 13.86 H RBC 3.51 L 3.52 L Hgb 10.8 L 10.7 L Hct 31.4 L 31.4 L Absolute Neutrophils 9.68 H 10.37 H Absolute Monocytes 1.03 H 1.14 H Anion Gap 11.6 H Alkaline Phosphatase 160 H Albumin 2.9 L
[2025-07-27] MEDS: Bupivacaine 0.25% Pres-Free 10 ML VIAL IT (12:04)
[2025-07-27] MEDS: fentaNYL 100 MCG/2 ML VIAL IT (12:04)
--- NOTE | 2025-07-27 12:31 | ANES.PREOP_ITS ---
General Info Date of Service Date Performed: 07/27/25 Height: 5 ft Weight: 76.204 kg Body Mass Index (BMI): 32.8 Meds Allergies and Home Medications Allergies Allergy/AdvReac Type Severity Reaction Status Date / Time pollen extracts Allergy Unknown Unknown Verified 07/19/25 13:45 Penicillins AdvReac Unknown Other (See Verified 07/19/25 13:45 Comment) Home Medication ?Medication ?Instructions ?Recorded ascorbic acid 125 mg-collagen, cap PO 01/29/25 hydrolyzed 740 mg capsule (Collagen Plus Vitamin C) calcium 650 mg-vitamin D3 12.5 tab PO 01/29/25 mcg-vitamin K 40 mcg chewable tablet (Viactiv) omega-3 360 ba-xuh-sbn-fish oil 1 cap PO DAILY 5 1,200 mg capsule,delayed release (Fish Oil) Bacillus coagulans 250 million 250 mmu cells PO ONCE 0 02/15/25 cell chewable tablet ferrous sulfate 325 mg (65 mg 325 mg PO DAILY 02/15/25 iron) tablet,delayed release vitamins no.165-iron 13 tab PO 02/15/25 mg-folic acid 1 mg chewable tablet Current Visit Medications: Current Medications Generic Name Dose Route Start Last Admin Trade Name Freq PRN Reason Stop Dose Admin Ringer's Solution 1,000 mls @ 125 mls/hr 07/27/25 03:00 07/27/25 12:00 IV 125 mls/hr INFUSION SHAHID Administration Oxytocin/Sodium Chloride 30 unit in 500 mls @ 2 mls/hr 07/27/25 03:00 07/27/25 12:22 Pitocin/Normal Saline IV 8 milliunits/min INFUSION SHAHID 8 mls/hr Protocol Titration 2 MILLIUNITS/MIN IV Miscellaneous Supplies 1 each 07/25/25 20:30 Iv Access IV DIRECTED SHAHID IV Miscellaneous Supplies 1 each 07/26/25 20:30 Iv Access IV DIRECTED SHAHID Sodium Chloride 0 ml 07/25/25 20:27 Normal Saline Flush 10 Ml Syr IVP PRN PRN Sodium Chloride 0 ml 07/26/25 08:30 07/27/25 07:39 Normal Saline Flush 10 Ml Syr IVP Not Given BID SHAHID Sodium Chloride 0 ml 07/25/25 20:27 Normal Saline 10 Ml Vial IJ DIRECTED PRN Sodium Chloride 0 ml 07/26/25 20:16 Normal Saline Flush 10 Ml Syr IVP PRN PRN Sodium Chloride 0 ml 07/27/25 08:30 Normal Saline Flush 10 Ml Syr IVP BID SHAHID Sodium Chloride 0 ml 07/26/25 20:16 Normal Saline 10 Ml Vial IJ DIRECTED PRN PFSH Active Problems Active Problems: Problem Status Onset Code Prolonged rupture of membranes Acute O42.90 PROM (premature rupture of membranes) Acute O42.90 Spontaneous onset of labor Acute Susceptible to varicella (non-immune), currently Acute O09.899, Z28.39 Rh negative state in antepartum period Acute O26.899, Z67.91 Acute Z34.90 Medical History Medical History (Updated 07/27/25 @ 03:03 by Rafia Guzman) Anxiety Family history of hypertension in father Tobacco Smoking/Tobacco Use Status: Former Tobacco Use Second hand exposure: No Alcohol Alcohol Intake: current Substance Use Substance use: Never Substance use type: does not use Prental History History 2 1 Para 0 Hx # Term Pregnancies 0 Multiple births 0 Hx # Pregnancies 0 Ectopic pregnancies 0 AB induced 0 Hx Number of Living Children 0 AB spontaneous 0 Vital Signs and Lab Results Vital Signs Most Recent Vital Signs in EMR: Most Recent Vital Signs Temp Pulse Resp BP 36.9 C 90 18 120/63 07/27/25 12:30 07/27/25 12:31 07/27/25 05:17 07/27/25 12:24 Lab Results 07/26/25 17:40 07/25/25 21:40 Blood Type / Crossmatch: 2 Antibody Screen POSITIVE 07/25/25 Complete Blood Count: 2 WBC, (4.4-10.8) 13.86 10^3/uL H 07/26/25, 17:40 RBC, (3.93-5.22) 3.52 10^6/uL L 07/26/25, 17:40 Hgb, (11.2-15.7) 10.7 g/dL L 07/26/25, 17:40 Hct, (36.0-46.0) 31.4 % L 07/26/25, 17:40 Plt Count, (130-400) 217 10^3/uL 07/26/25, 17:40 Complete Metabolic Panel: 2 Sodium, (136-145) 137 mmol/L 07/25/25, 21:40 Potassium, (3.5-5.1) 3.8 mmol/L 07/25/25, 21:40 Chloride, (98-107) 103 mmol/L 07/25/25, 21:40 Carbon Dioxide, (21.0-32.0) 22.4 mmol/L 07/25/25, 21 :40 BUN, (7-18) 9 mg/dL 07/25/25, 21:40 Creatinine, (0.55-1.02) 0.6 mg/dL 07/25/25, 21:40 Est GFR (CKD-EPI 2020), (mL/min/1.73m2) 123.76 07/25/25, 21:40 Calcium, (8.5-10.1) 8.9 mg/dL 07/25/25, 21:40 Albumin, (3.4-5.0) 2.9 g/dL L 07/25/25, 21:40 Glucose, (74-106) 95 mg/dL 07/25/25, 21:40 Liver Function Panel: 2 ALT, (14-59) 18 U/L 07/25/25, 21:40 AST, (15-37) 17 U/L 07/25/25, 21:40 Anesthesia Assessment and Plan Anesthesia History Personal History: No History of Anesthesia Complications Family History: No Family History of Anesthesia Complications Exercise Tolerance Exercise Tolerance: Metabolic Equivalents>4 Pertinent Negatives Pertinent Negatives: No Symptoms of GERD Cardiac & Pulmonary Exam Cardiac Exam: Normal S1/S2 Heart Sounds Pulmonary Exam: Clear Bilateral Breath Sounds Implantable Cardiac Device Does patient have a Pacemaker or an ICD?: No Airway Exam Known Difficult Airway: No Mallampati Class: 2 Mouth Opening: Normal (> 3cm) Thyromental Distance: Greater than 3 cm Neck Range of Motion: Full ROM Neck Circumference: Normal Teeth Condition: Normal Dentition ASA Classification ASA Score: ASA 2 Emergency Case?: No NPO Status NPO Status: NPO Clear Liquids>2 hours Status Status: Positive HCG (Full-term, Laboring) Anesthesia Plan Resuscitation Status: Full Code Anesthesia Technique: Labor Intrathecal Injection Airway Planned: Natural Airway Monitors Used: Standard Monitors Preoperative Comments:: Pt is in active labor and at 10cm/100% effaced. Baby is facing up (OP position) in pelvis. Pt given options between SAB and Epidural. Also talked about risk/options if pt proceeds to . Pt. and asked appropriate questions with good understanding of options and requested laboring SAB dose. Hussain Medel, BILLBOARD ERECTOR HELPER
--- NOTE | 2025-07-27 12:39 | W.ANESPROC ---
Intrathecal Analgesia Date Performed: 07/27/25 Procedure Time: 12:05 Requesting Provider: Rafia Guzman Procedure Location: Obstetrics Reason Performed: Labor Intrathecal Analgesia Standard Monitors Applied: Blood Pressure, SpO2 and See EMR for corresponding vital signs Patient Position: Sitting Timeout Performed: Yes Sedation Given (Indicate Dose Given): No Sedation given Patient Mental Status: Awake Sterility: Hand Hygiene, Surgical Cap, Surgical Mask, Sterile Gloves, Sterile Drape/Sheet, Eye Protection and Chlorhexidine Placement Site: L3-L4 Interspace Spinal Needle Type: Other (24gu pencan) Needle Length: 4 Inch Spinal Procedure: Site Prepped, Sterile Drape Placed, 1% Lidocaine to skin and subcutaneous tissue with 25G needle, Introducer Needle Used, Spinal Needle Placed, Negative Heme, Positive CSF Flow and Medication Injected Paresthesia: None Spinal Local Anesthetic (Indicate Dose Given): Bupivacaine 0.25% PF (ml) Dose:: 1cc/0.25% (2.5mg) Additives (Indicate Dose Given): Fentanyl PF Dose:: 25mcg and Duramorph PF Dose:: 125mcg Ultrasound: Used to karolyn site Number of Attempts (See previous attempts in note section): 1 Procedure Tolerated: No Complications and Patient tolerated well Procedure Outcome: Successful Procedure Comment: Pt comfortable after injection. BP stable. Performed By: Mata Medel
[2025-07-27] MEDS: Oxytocin/Normal Saline 30 UNIT/500 ML BAG 334 UNITS IV (14:25)
--- NOTE | 2025-07-27 14:41 | W.ANESPOSTOP ---
Postoperative Evaluation Date, Time and Location Date Performed: 07/27/25 Time Performed: 14:41 Patient Location: Obstetrics Vital Signs Most Recent Imported Vital Signs: Most Recent Vital Signs Temp Pulse Resp BP 36.9 C 110 H 16 132/64 07/27/25 12:30 07/27/25 14:30 07/27/25 12:54 07/27/25 14:30 Assessment Mental Status: Awake (Alert & Oriented to Patient Baseline) Airway and Respiratory Function: Patent airway with normal (patient baseline) respiratory exam Cardiovascular Function: Hemodynamically Stable Hydration Status: Adequately Hydrated Nausea & Vomiting: No Nausea or Vomiting Pain: Pain is tolerable per patient Peripheral Nerve Block: Patient did not receive a nerve block Postoperative Comments:: Pt delivered . Doing well. Mom is happy with SAB choice. Hussain Medel CRNA
--- NOTE | 2025-07-27 15:14 | OBVDS_ITS ---
Date of service: 07/27/25 Time of Service: 15:14 OB Labor/ Delivery Information Baby A Delivery Delivery Method: Spontaneaous Presentation: Cephalic Cephalic Position: Vertex Vertex Position: Right Occipital Posterior (nearly direct OP) Cord Description-Baby A: 3 Vessels and Clamped/Cut Amniotic Fluid: Clear and Other (terminal meconium) Quantitative Blood Loss: 100 Delivery Outcome: Liveborn Infant Transferred: Remains with Mother Note: Pt felt energized and excited to resume pushing after effective intrathecal was done, pitocin had been turned off for anesthesia induction and then turned on at 6 u/min and gradually increased to a max of 14 during 2nd stage. FHTs category 2 with earlies and variables to 90 with slow return to baseline during last 45 minutes (approx), Dr. Rosario inhouse and aware of tracing and pt's progress, very strong pushing efforts over 2 hours produced over MLE cut under local anesthesia as perineum remained thick/long and OP position was evident, vigorous male delivered nearly direct OP to ROT, shoulders came with ease and to mother's arms immediately. pitocin bolus begun, cord clamped and cut by FOB at 4-5 minutes, cord blood collected. Placenta not delivered with gentle cord traction or maternal efforts, no bleeding noted, 2nd degree MLE repaired with 3.0 Rapide, no other lacerations visualized, uterus displaced to the right and straight cath performed for 400 ml yellow urine. Attention was returned to placenta which had still not released, further traction and maternal efforts did not result in placenta delivery, Dr. Rosario summoned to room to evaluate, with firm fundal massage/pressure and hand at cervical os she was able to deliver the placenta by Gerardo mechanism, examination reveals intact placenta with 3VC and paracentral cord insertion. Minimal lochia, strong family bonding observed, apgars 8/9, weight 3535 gms. Providers Doctor: Angelia Rosario Nurse Agriculture Research Director: Rafia Guzman Agribusiness Professor: Mata Medel Nurse: Denisa Alfaro Labor/Delivery Information Number of Babies in Womb: 1 Steroids Given: None Reason Steroids Not Administered: N/A Group Beta Strep: Negative Antibiotics Administered: No Rubella Status: Immune Blood Type: O- Varicella Immunity: Nonimmune Shoulder Dystocia: No Stages of Labor Onset of Labor Date: 07/25/25 Onset of Labor Time: 20:00 Complete Dilatation Date: 07/27/25 Complete Dilatation Time: 09:53 Labor - Stage 1 Duration: 37 hours and 53 minutes ROM Baby A: 08/15/25 ROM Baby A: 20:00 ROM Total Time- Baby A: [id number] Infant Delivery Date-Baby A: 07/27/25 Infant Delivery Time-Baby A: 14:23 Labor Stage 2 Duration: 4 hours and 30 minutes Placenta Delivery Date-Baby A: 07/27/25 Placenta Delivery Time-Baby A: 14:56 Labor-Stage 3 Duration: 33 minutes Total Length of Labor-Baby A: 42 hours and 23 minutes Placenta Status: Delivered Baby A Gender: Male Gestational Status: Term (39-41.6 wks) Gestational Age in Weeks/Days: 40 Weeks and 1 Days weight: 7 lb 12.693 oz Weight Comment: 3535 gms Score-1 Minute Interval(Baby A) Heart Rate-1 minute: 100 BPM or Greater Respiratory Effort- 1 minute: Spontaneous/Strong Cry Muscle Tone-1 minute: Active Movement Reflex Response-1 minute: Prompt Response Color-1 minute: Pallor or Cyanosis Total Score-1 minute: 8 Score-5 Minute Interval(Baby A) Heart Rate- 5 minute: 100 BPM or Greater Respiratory Effort-5 minute: Spontaneous/Strong Cry Muscle Tone-5 minute: Active Movement Reflex Response-5 minute: Prompt Response Color-5 minute: Bluish Hands or Feet Total Score- 5 minute: 9
--- NOTE | 2025-07-27 15:57 | OBVDS_ITS ---
Date of service: 07/27/25 Time of Service: 15:57 OB Labor/ Delivery Information Baby A Delivery Note: I was called for evaluation of placental delivery at 30mins s/p delivery. Bleeding was normal. With fundal massage and gentle cord traction the placenta delivered intact. The fundus was then palpated to be firm with minimal bleeding. Providers Doctor: Angelia Rosario Nurse Glassware Maker Demonstrator: Rafia Guzman Geographic Area Intelligence Officer: Mata Medel Nurse: Denisa Alfaro Labor/Delivery Information Number of Babies in Womb: 1 Steroids Given: None Reason Steroids Not Administered: N/A Group Beta Strep: Negative Antibiotics Administered: No Rubella Status: Immune Blood Type: O- Varicella Immunity: Nonimmune Shoulder Dystocia: No Stages of Labor Onset of Labor Date: 07/25/25 Onset of Labor Time: 20:00 Complete Dilatation Date: 07/27/25 Complete Dilatation Time: 09:53 Labor - Stage 1 Duration: 37 hours and 53 minutes ROM Baby A: 08/15/25 ROM Baby A: 20:00 ROM Total Time- Baby A: [id number] Infant Delivery Date-Baby A: 07/27/25 Delivery Time-Baby A: 14:23 Labor Stage 2 Duration: 4 hours and 30 minutes Placenta Delivery Date-Baby A: 07/27/25 Placenta Delivery Time-Baby A: 14:56 Labor-Stage 3 Duration: 33 minutes Total Length of Labor-Baby A: 42 hours and 23 minutes Placenta Status: Delivered Baby A Infant Gender: Male Gestational Status: Term (39-41.6 wks) Gestational Age in Weeks/Days: 40 Weeks and 1 Days Score-1 Minute Interval(Baby A) Heart Rate-1 minute: 100 BPM or Greater Respiratory Effort- 1 minute: Spontaneous/Strong Cry Muscle Tone-1 minute: Active Movement Reflex Response-1 minute: Prompt Response Color-1 minute: Pallor or Cyanosis Total Score-1 minute: 8 Score-5 Minute Interval(Baby A) Heart Rate- 5 minute: 100 BPM or Greater Respiratory Effort-5 minute: Spontaneous/Strong Cry Muscle Tone-5 minute: Active Movement Reflex Response-5 minute: Prompt Response Color-5 minute: Bluish Hands or Feet Total Score- 5 minute: 9
--- NOTE | 2025-07-27 15:58 | W.PM.OP ---
Operative Note Operative Note Refer to Anesthesia Record
[2025-07-27] MEDS: Dibucaine 1% 28 GM TUBE TP (17:51)
[2025-07-27] MEDS: Hamamelis Leaf/Glycerin 100 EACH BOX PR (17:52)
[2025-07-27] MEDS: Acetaminophen 325 MG TAB 650 MG PO (22:48)
[2025-07-28] VITALS (16 sets, daily range): BP systolic 114–121; BP diastolic 62–83; PULSE 84–103; RESP 16; TEMP 36.8–37.1; O2SAT 98
[2025-07-28] MEDS: Normal Saline Flush 10 ML SYR IVP (06:28)
[2025-07-28] MEDS: Acetaminophen 325 MG TAB 650 MG PO ×3 (06:28→23:54)
[2025-07-28] MEDS: Docusate Sodium 100 MG CAP PO ×2 (09:10→18:58)
[2025-07-28] MEDS: Ibuprofen 600 MG TAB PO ×2 (09:11→18:58)
--- NOTE | 2025-07-28 09:38 | OBPPV_ITS ---
Date of service: 07/28/25 Time of Service: 09:39 Assessment and Plan Assessment and plan (1) Term delivered: Status: Acute Assessment and plan: A: PPD#1, satisfied with experience and care off to a good start, afebrile, pulse 90-110 P: CBC this morning to check WBC, if < 15 will d/c IV access Planning for discharge tomorrow RhoGam and Varicella vaccine today Routine PP care and BF support (2) Prolonged rupture of membranes: Status: Acute (3) Prolonged labor: Status: Acute Subjective Subjective Patient comments: No complaints, Pain well controlled, Tolerating diet and Flatus present Patient's Mood: happy [place] baby status: Doing well, Nursing well, Rooming in and Strong Bonding Observed feeding status: Exclusively breast feeding Exam Physical Exam Vital signs: Temp Pulse Resp BP Pulse Ox 98.8 F 104 H 16 122/78 97 07/27/25 20:10 07/27/25 20:10 07/28/25 08:00 07/27/25 20:10 07/27/25 20:10 Vital Signs Reviewed: Yes Constitutional Constitutional: no acute distress and cooperative HEENT Exam HEENT Exam: Normal Neck Exam Neck Exam: Normal Breast Exam Bilateral: Breast Exam: Normal and Soft Nipple Exam: Normal and Uninjured Respiratory Exam Respiratory Exam: Normal Cardiovascular Exam Cardiovascular Exam: Normal Abdominal Exam Abdomen: Other (soft, nontender) Fundal Exam Fundus: Below Umbilicus and Firm Rectal Exam Rectal Exam: Normal Exam Perineum: Repair Intact Extremities Exam Extremity Exam: Normal, Full ROM and Warm to Touch Back/Spine/Pelvis Exam Back Exam: Normal Skin Exam Skin Exam: Normal Neurological Exam Neurological Exam: Normal Psychiatric Exam Psychiatric Exam: Normal
[2025-07-28] MEDS: FLU Vaccine TS 2025-26 PF (36MOS UP) 45 MCG/0.5 ML SYR IM (09:58)
--- NOTE | 2025-07-28 10:02 | NUR.NOTE ---
Rhogam administered Right Deltoid. Lot [id number]. Unit #[id number]. Exp 01/21/26. Nursing Note:
[2025-07-28 10:11] LABS: Abs Immature Grans 0.25 10^3/uL (0.0-0.06); HCT 24.9 % (36.0-46.0); HGB 8.4 g/dL (11.2-15.7); Immature Grans % 1.5 %; MCH 30.8 pg (27.0-33.0); MCHC 33.7 % (32.0-36.0); MCV 91 fL (80-95); MPV 9.3 fL (8.0-11.0); Platelet Count 214 10^3/uL (130-400); RBC 2.73 10^6/uL (3.93-5.22); RDW 14.4 % (11.7-14.6); RDW-SD 47.8 fL; WBC 16.26 10^3/uL (4.4-10.8)
[2025-07-28] MEDS: IRON SUCROSE COMPLEX 300 MG in Normal Saline 250 ML 167 MG IVPB (12:58)
[2025-07-29] MEDS: Ibuprofen 600 MG TAB PO ×2 (00:57→11:29)
[2025-07-29 06:37] LABS: Abs Immature Grans 0.50 10^3/uL (0.0-0.06); HCT 23.8 % (36.0-46.0); HGB 8.0 g/dL (11.2-15.7); Immature Grans % 4.2 %; MCH 31.1 pg (27.0-33.0); MCHC 33.6 % (32.0-36.0); MCV 93 fL (80-95); MPV 9.1 fL (8.0-11.0); Platelet Count 214 10^3/uL (130-400); RBC 2.57 10^6/uL (3.93-5.22); RDW 14.4 % (11.7-14.6); RDW-SD 49.1 fL; WBC 12.04 10^3/uL (4.4-10.8)
[2025-07-29] MEDS: Acetaminophen 325 MG TAB 650 MG PO ×2 (06:44→12:33)
[2025-07-29 07:40] VITALS: BP 112/78; PULSE 86; RESP 17; TEMP 36.7; O2SAT 99
--- NOTE | 2025-07-29 09:24 | OBPPV_ITS ---
Date of service: 07/29/25 Time of Service: 09:24 Assessment and Plan Assessment and plan (1) Term delivered: Status: Acute Assessment and plan: A: PPD#2, satisfied with experience and care off to a good start, afebrile, pulse 90-110 P: WBC this morning @ 12 Pt remains afebrile, pulse <100 Pt received 300 mg venofer IV yesterday Discharge to home today Written instructions reviewed and given to pt F/up in 2 and 6 wks with midwives (2) Prolonged rupture of membranes: Status: Acute Assessment and plan: Afebrile, cat 1 tracing, continues to decline ATB (3) Anemia, : Status: Acute Subjective Subjective Patient comments: No complaints, Pain well controlled, Tolerating diet and [place] present Patient's Mood: happy baby status: Doing well, Nursing well, Rooming in and Strong Bonding Observed feeding status: Exclusively breast feeding Exam Physical Exam Vital signs: Temp Pulse Resp BP Pulse Ox 98.1 F 86 17 112/78 99 07/29/25 07:40 07/29/25 07:40 07/29/25 07:40 07/29/25 07:40 07/29/25 07:40 Vital Signs Reviewed: Yes Constitutional Constitutional: no acute distress and cooperative HEENT Exam HEENT Exam: Normal Neck Exam Neck Exam: Normal Breast Exam Bilateral: Breast Exam: Normal and Soft Respiratory Exam Respiratory Exam: Normal Cardiovascular Exam Cardiovascular Exam: Normal Abdominal Exam Abdomen: Other (soft, nontender) Fundal Exam Fundus: Below Umbilicus and Firm Rectal Exam Rectal Exam: Normal Exam Perineum: Repair Intact Extremities Exam Extremity Exam: Normal, Full ROM and Warm to Touch Back/Spine/Pelvis Exam Back Exam: Normal Skin Exam Skin Exam: Normal Neurological Exam Neurological Exam: Normal Psychiatric Exam Psychiatric Exam: Normal Additional findings Additional findings: small forebag AROM'ed with pt consent, small amt clear fluid returned Results Hemoglobin/Hematocrit: Hgb 8.0 g/dL (11.2-15.7) L 07/29/25 06:20 Hct 23.8 % (36.0-46.0) L 07/29/25 06:20 Abnormal Lab Findings: Abnormal Labs 07/25/25 07/26/25 07/28/25 21:40 17:40 09:45 WBC 13.34 H 13.86 H 16.26 H RBC 3.51 L 3.52 L 2.73 L Hgb 10.8 L 10.7 L 8.4 L D Hct 31.4 L 31.4 L 24.9 L Absolute Neutrophils 9.68 H 10.37 H 12.16 H Absolute Monocytes 1.03 H 1.14 H 1.12 H Anion Gap 11.6 H Alkaline Phosphatase 160 H Albumin 2.9 L 07/29/25 06:20 WBC 12.04 H RBC 2.57 L Hgb 8.0 L Hct 23.8 L Absolute Neutrophils 8.18 H Absolute Monocytes Anion Gap Alkaline Phosphatase Albumin Hemorrrhage Note IV Site Left Wrist: IV Catheter Gauge: 20
--- NOTE | 2025-07-29 09:43 | DSE_ITS ---
Date of service: 07/29/25 Time of Service: 09:43 DS: Diagnosis Discharge Diagnosis (1) Term delivered: Status: Acute (2) Prolonged rupture of membranes: Status: Acute (3) Anemia, : Status: Acute Discharge Plan Disposition Patient Disposition: Home Condition: Good Discharge Details Reason For Visit: Labor Admit Date/Time: 07/25/25 20:27 Admit Provider: Jo-Ann Hernández Attending Provider: Jo-Ann Hernández Primary Care Provider: Unknown,Unknown Hospital Course Hospital Course: Admitted with PROM and early labor, pt spontaneously progressed to 6cm dilation and labor slowed to a plateau. Recommendations to pt made for augmentation and prophylactic ATB due to prolonged ROM, pt declined therapies until 0330 on HD#3 when she consented only to pitocin augmentation. This brought her to 2nd stage of labor but persistent OP position was identified and at low station, after 2-3 hrs of pushing without further progress pt consented to intrathecal anesthesia. Pushing resumed after pt was more comfortable and of direct OP was accomplished over midline episiotomy. Nml course since delivery with close observation for signs of endometritis or sepsis. Pt discharged on PPD#2 in good condition, routine f/up recommended. Home Meds and New Rx's Prescriptions: No Action Collagen Plus Vitamin C 125-740 mg capsule PO omega 8-twp-ytx-fish oil [Fish Oil] 360-1,200 mg capsule,delayed release(DR/EC) 1 cap PO DAILY calcium-vitamin D3-vitamin K [Viactiv] 650 mg-12.5 mcg-40 mcg tablet,chewable PO ferrous sulfate 325 mg (65 mg iron) tablet,delayed release (DR/EC) 325 mg PO DAILY PNV no.165-iron fum-folic acid 13 mg iron- 1 mg tablet,chewable PO Bacillus coagulans 250 million cell tablet,chewable 250 mmu cells PO ONCE Discharge Instructions Additional Instructions: Please keep 2 and 6 wk appointments with the midwives, call for any and all concerns and questions. Stand Alone Forms: BC Instructions, BC Post Vaginal Deliver Activity:: Activity as Tolerated Equipment/Supplies:: No Equipment Needed Diet:: Normal Diet OB:DS Summary Summary Vaginal Delivery Method: Spontaneaous Contraception Discussed Contraception Discussed: Yes Contraceptive Plan: Undecided, Infant Gender-Baby A: Male weight: 7 lb 12.693 oz Status at Discharge Functional status at discharge: independent ambulation Overall status at discharge: patient is progressing back to baseline Mental Status: mental status grossly normal Speech and Movement: speech and movement normal and speech clear Mood: congruent mood Affect: normal affect Exam Physical Exam Vital signs: Temp Pulse Resp BP Pulse Ox 98.1 F 86 17 112/78 99 07/29/25 07:40 07/29/25 07:40 07/29/25 07:40 07/29/25 07:40 07/29/25 07:40 Constitutional Constitutional: no acute distress and cooperative HEENT Exam HEENT Exam: Normal Neck Exam Neck Exam: Normal Breast Exam Bilateral: Breast Exam: Normal and Soft Respiratory Exam Respiratory Exam: Normal Cardiovascular Exam Cardiovascular Exam: Normal Abdominal Exam Abdomen: Other (soft, nontender) Fundal Exam Fundus: Below Umbilicus and Firm Rectal Exam Rectal Exam: Normal Exam Perineum: Repair Intact Extremities Exam Extremity Exam: Normal, Full ROM and Warm to Touch Back/Spine/Pelvis Exam Back Exam: Normal Skin Exam Skin Exam: Normal Neurological Exam Neurological Exam: Normal Psychiatric Exam Psychiatric Exam: Normal Additional findings Additional findings: small forebag AROM'ed with pt consent, small amt clear fluid returned PFSH All Active Problems (Updated 07/28/25 @ 12:37 by Rafia Guzman) Anemia, (Acute) Term delivered (Acute) Prolonged labor (Acute) Prolonged rupture of membranes (Acute) Susceptible to varicella (non-immune), currently (Acute) Rh negative state in antepartum period (Acute) Medical History (Updated 07/28/25 @ 12:37 by Rafia Guzman) Spontaneous onset of labor PROM (premature rupture of membranes) Anxiety Family history of hypertension in father Family History (Updated 01/29/25 @ 15:02 by Marii Bejarano CNM) Father Family history of hypertension in father Hypertension Substance use disorder Alcohol use disorder Aunt Hyperlipidemia Maternal Grandmother Hyperlipidemia Diabetes Mother Bipolar disorder Substance use disorder Alcohol use disorder Paternal Grandmother Heart disease Uncle Cancer Social History (Updated 01/29/25 @ 15:09 by Marii Bejarano CNM) Smoking/Tobacco Use Status: Former Tobacco Use Second Hand Exposure: No Smoking risk assessment performed?: Yes Alcohol Intake: current Drug use: Never Substance use type: does not use Household members: significant other Housing: house 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[employer] [place] Pets and animals: Yes (3 dogs and chickens) Pets and animals: cat(s), dog(s) and farm animals Sexually active: Yes Do you think of yourself as: straight/heterosexual Current gender identity: female What is your relationship status?: living with partner Panel score (0-1 are the most socially isolated patients): 1 What type of physical activity do you participate in: walking, regular exercise, other Details: pilates and yoga Duration: 30-45 minutes/day Frequency: 3-4 times per week Seatbelt use: always Helmet use: Yes Do you feel safe at home: Yes Do you feel safe in your relationship?: Yes Female Reproductive History Menstrual Age of Menarche: 12 Duration of menses: 3-5 days History History 1 Para 0 Hx # Term Pregnancies 0 Multiple births 0 Hx # Pregnancies 0 Ectopic pregnancies 0 AB induced 0 Hx Number of Living Children 0 AB spontaneous 0 DS: Data Vitals/I&O Vitals and I&O: Vital Signs Temperature 98.1 F 07/29/25 07:40 Temperature Source Oral 07/29/25 07:40 Pulse 86 07/29/25 07:40 Pulse Rhythm Regular 07/29/25 07:42 Respiratory Rate 17 07/29/25 07:40 Respiratory Depth Normal 07/29/25 07:42 Blood Pressure 112/78 07/29/25 07:40 Blood Pressure Mean 89 07/29/25 07:40 Pulse Oximetry 99 07/29/25 07:40 Oxygen Delivery Method Room Air 07/25/25 21:39 Oxygen Flow Rate 0 07/25/25 21:39 Pain Level 3 07/29/25 06:44 Comment manual radial pulse 07/26/25 16:40 Intake & Output 07/28/25 07/28/25 07/29/25 11:59 23:59 11:59 Other: Comment pt has been voiding independently without difficulty. Data Completed and Pending Labs on day of discharge: Labs from last 24 hours 07/29/25 07/28/25 07/25/25 06:20 09:45 21:40 WBC 12.04 H 16.26 H RBC 2.57 L 2.73 L Hgb 8.0 L 8.4 L D Hct 23.8 L 24.9 L MCV 93 91 MCH 31.1 30.8 MCHC 33.6 33.7 RDW 14.4 14.4 Plt Count 214 214 MPV 9.1 9.3 Immature Gran % 4.2 1.5 Neutrophils % 67.9 74.8 Lymphocytes % 19.5 15.7 Monocytes % 6.6 6.9 Eosinophils % 1.4 0.7 Basophils % 0.4 0.4 Nucleated RBC % 0.0 0.0 Absolute Neutrophils 8.18 H 12.16 H Absolute Lymphocytes 2.35 2.55 Absolute Monocytes 0.79 1.12 H Absolute Eosinophils 0.17 0.11 Absolute Basophils 0.05 0.07 ABO/Rh O Negative Antibody Screen POSITIVE Antibody Identification Anti-D Rhogam Unit Number [id number] Unit Expiration Date 01/21/26 Product Lot # [id number]
[2025-07-29] MEDS: Docusate Sodium 100 MG CAP PO (11:29)
[2025-07-29] MEDS: Hamamelis Leaf/Glycerin 100 EACH BOX PR (11:36)
== END 2025-07-29 18:06 | disposition home or self-care (01) | DRG 807 ==
LOC: BCD 20:31 → OBS 20:36
PROVIDERS: Advanced Practice Midwife; Admitting Provider Advanced Practice Midwife; Visit Provider Advanced Practice Midwife
DX: O42.92 Full-term premature rupture of membranes, unspecified as to length of time between rupture and onset of labor (principal); Z37.0 Single live birth; Z3A.40 40 weeks gestation of pregnancy; O77.0 Labor and delivery complicated by meconium in amniotic fluid; O70.1 Second degree perineal laceration during delivery; O75.81 Maternal exhaustion complicating labor and delivery; O63.1 Prolonged second stage (of labor); O90.81 Anemia of the puerperium; D64.9 Anemia, unspecified; O26.893 Other specified pregnancy related conditions, third trimester; Z67.91 Unspecified blood type, Rh negative; Z28.39 Other underimmunization status; F41.9 Anxiety disorder, unspecified; O99.344 Other mental disorders complicating childbirth
CPT/HCPCS: 36415; 62322; 80053; 84112; 85461; 86850; 86900; 86901; 90384; 90656; 85025; 86870; 87081; J0166; J0665; J1756; J2274; J3010

== ENCOUNTER 2025-09-13 17:06 | Outpatient (REF) | payer BC, SELFPAY ==
--- NOTE | 2025-09-13 16:30 | CER_PTH ---
PATIENT: Fabricio Kulkarni LOC: [facility] U#:[id number] AGE/SX: 30/F ROOM: RE09/13/[address]: Jo-Ann Hernández : 1995 BED: DIS: 09/13/2025 SPEC #: [id number] RECD: 09/13/25 18:28 STATUS: GERARDO REQ #: [id number] MATA: 09/13/25 16:[address]: Jo-Ann Hernández DEPT: Surgical Specimen RECD BY: Jessenia Brown ENTERED: 09/13/25 18:29 SP TYPE: EMMY KING DR: Unknown,Unknown Tissues: 1 - CERVICAL BIOPSY Procedures: GROSS AND MICRO LEVEL 4 Comments: [id number]
== END 2025-09-13 17:07 | disposition home or self-care (01) ==
LOC: LBN 17:06
PROVIDERS: Visit Provider Advanced Practice Midwife
DX: O73.1 Retained portions of placenta and membranes, without hemorrhage (principal)
CPT/HCPCS: 88305

== ENCOUNTER 2025-09-16 17:00 | Outpatient (CLI) | payer BC, SELFPAY ==
[2025-09-16 17:50] LABS: HCG Quant, Pregnancy < 3 mIU/mL (1.5-4.2)
== END 2025-09-16 17:01 | disposition home or self-care (01) ==
LOC: LBO 17:00
PROVIDERS: Visit Provider Obstetrics & Gynecology
DX: O73.1 Retained portions of placenta and membranes, without hemorrhage (principal)
CPT/HCPCS: 36415; 84702